=== PATIENT | female | born 1945 | race Caucasian/White ===

== ENCOUNTER 2017-10-03 10:03 | Inpatient (IN) | payer OTHER, BC ==
[~2017-10-03] VITALS: Ht 165.1 cm; Wt 79.0 kg
[2017-10-03 10:08] VITALS: Ht 165.1 cm; Wt 79.0 kg
[2017-10-03 11:03] LABS: CALCIUM 8.9 mg/dL (8.5-10.1); CARBON DIOXIDE 38.1 mmol/L (21-32); CHLORIDE SERUM 95 mmol/L (98-107); CREATININE SERUM 1.2 mg/dL (0.6-1.0); GLUCOSE SERUM 437 mg/dL (74-106); POTASSIUM SERUM 5.2 mmol/L (3.5-5.1); SODIUM SERUM 139 mmol/L (136-145)
[2017-10-03 11:09] LABS: ALBUMIN 3.1 g/dL (3.4-5.0); ALKALINE PHOSPHATASE 88 U/L (46-116); ALT/SGPT 40 U/L (14-59); AST/SGOT 60 U/L (15-37); BILIRUBIN TOTAL 0.6 mg/dL (0.20-1.00); PLATELET COUNT 307 x10^3mcL (130-400); TOTAL PROTEIN, SERUM 6.5 g/dL (6.4-8.2)
[2017-10-03 11:26] LABS: RED CELL DISTRIBUTION WIDTH 20.4 % (11.5-14.5)
[2017-10-03 11:51] LABS: UA SPECIFIC GRAVITY 1.015 (1.005-1.035); microscopic required? YES; urine erythrocyte NEGATIVE (NEGATIVE)
[2017-10-03 12:14] LABS: BAND NEUTROPHIL 15 % (0-10); MONOCYTE 6 % (0-7); SEGMENTED NEUTROPHILS 70 % (37-75)
[2017-10-03 12:15] LABS: METAMYELOCTE 1 % (0-2); PLATELET MORPHOLOGY LARGE PLATELET SEEN; ovalocyte/elliptocyte 1+; rbc morphology (normal/abnorm) ABNORMAL (NORMAL); schistocyte (helmet cell) 1+
[2017-10-03] MEDS ORDERED: MOBIC15 MG PO (15:28)
[2017-10-03] MEDS ORDERED: REQUIP0.5 MG PO (15:29)
[2017-10-03] MEDS ORDERED: FUROSEMIDE40 MG PO (15:29)
[2017-10-03] MEDS ORDERED: COLACE100 MG PO (15:29)
[2017-10-03] MEDS ORDERED: ZOLOFT100 MG PO (15:29)
[2017-10-03] MEDS ORDERED: GABAPENTIN100 M2 PO (15:30)
[2017-10-03] MEDS ORDERED: ALBUTEROL SULFAT3 ML NEB (15:30)
[2017-10-03] MEDS ORDERED: LEVOTHYROXIN0.025 M2 PO (15:30)
[2017-10-03] MEDS ORDERED: BUDESONIDE0.25 MG/2 NEB (15:30)
[2017-10-03] MEDS ORDERED: LORAZEPAM1 MG PO (15:31)
[2017-10-03] MEDS ORDERED: PREDNISONE1 MG (15:31)
[2017-10-03] MEDS ORDERED: METOPROLOL TART25 M1 (15:32)
[2017-10-03 16:14] LABS: MAGNESIUM 2.4 mg/dL (1.8-2.4); PHOSPHOROUS 5.6 mg/dL (2.5-4.9)
[2017-10-03 16:15] LABS: CHOLESTEROL/HDL RATIO 1.8
[2017-10-03 16:24] LABS: FREE T4 0.87 ng/dL (0.76-1.46); FREE THYROXINE INDEX 3.7 ug/dL (1.4-4.5); T3 TOTAL 0.43 ng/mL; T4(THYROXINE) 9.1 ug/dL (4.7-13.3)
[2017-10-03 17:42] VITALS: BP 133/76
[2017-10-03 17:49] VITALS: BP 133/76
[2017-10-03 17:53] VITALS: BP 135/76
[2017-10-03 18:38] LABS: IRON 107 ug/dL (50-170); TOTAL IRON BINDING CAPACITY 319 ug/dL (250-450)
[2017-10-03 19:16] LABS: RED BLOOD CELLS 3.44 M/mm3 (4.10-5.10)
[2017-10-03 20:49] VITALS: BP 125/55
[2017-10-04 05:53] VITALS: BP 130/59
[2017-10-04 09:11] VITALS: BP 115/55
[2017-10-04 12:41] VITALS: BP 121/52
[2017-10-04 17:07] VITALS: BP 130/69
[2017-10-04 17:36] LABS: PLATELET COUNT 177 x10^3mcL (130-400)
[2017-10-04 17:38] LABS: RED CELL DISTRIBUTION WIDTH 20.7 % (11.5-14.5)
[2017-10-04 17:46] LABS: CALCIUM 8.2 mg/dL (8.5-10.1); CARBON DIOXIDE 36.8 mmol/L (21-32); CHLORIDE SERUM 100 mmol/L (98-107); CREATININE SERUM 0.9 mg/dL (0.6-1.0); GLUCOSE SERUM 113 mg/dL (74-106); MAGNESIUM 2.2 mg/dL (1.8-2.4); PHOSPHOROUS 3.6 mg/dL (2.5-4.9); POTASSIUM SERUM 4.9 mmol/L (3.5-5.1); SODIUM SERUM 138 mmol/L (136-145)
[2017-10-04 18:10] LABS: SEGMENTED NEUTROPHILS 68 % (37-75)
[2017-10-04 18:11] LABS: BAND NEUTROPHIL 17 % (0-10); METAMYELOCTE 1 % (0-2); MONOCYTE 5 % (0-7)
[2017-10-04 18:12] LABS: PLATELET MORPHOLOGY PLATELETS NORMAL; ovalocyte/elliptocyte 1+; rbc morphology (normal/abnorm) ABNORMAL (NORMAL)
[2017-10-04 19:30] VITALS: BP 126/54
[2017-10-05 05:33] VITALS: BP 143/79
[2017-10-05 07:49] LABS: PLATELET COUNT 176 x10^3mcL (130-400); RED CELL DISTRIBUTION WIDTH 20.2 % (11.5-14.5)
[2017-10-05 07:54] LABS: CALCIUM 8.6 mg/dL (8.5-10.1); CARBON DIOXIDE 33.2 mmol/L (21-32); CHLORIDE SERUM 100 mmol/L (98-107); CREATININE SERUM 0.8 mg/dL (0.6-1.0); GLUCOSE SERUM 174 mg/dL (74-106); MAGNESIUM 2.2 mg/dL (1.8-2.4); PHOSPHOROUS 4.8 mg/dL (2.5-4.9); SODIUM SERUM 137 mmol/L (136-145)
[2017-10-05 08:48] LABS: POTASSIUM SERUM 5.7 mmol/L (3.5-5.1)
[2017-10-05 10:49] VITALS: BP 148/74
[2017-10-05 10:59] LABS: BAND NEUTROPHIL 6 % (0-10); BASOPHIL 0 % (0-2); MONOCYTE 1 % (0-7); SEGMENTED NEUTROPHILS 92 % (37-75)
[2017-10-05 11:00] LABS: PLATELET MORPHOLOGY PLATELETS DECREASED; rbc morphology (normal/abnorm) ABNORMAL (NORMAL)
[2017-10-05 14:10] VITALS: BP 154/77
[2017-10-05 18:39] VITALS: BP 127/65
[2017-10-05 22:20] VITALS: BP 119/59
[2017-10-06 05:10] VITALS: BP 123/64
[2017-10-06 10:47] VITALS: BP 131/61
[2017-10-06 12:39] LABS: CALCIUM 7.6 mg/dL (8.5-10.1); CARBON DIOXIDE 38.7 mmol/L (21-32); CHLORIDE SERUM 99 mmol/L (98-107); CREATININE SERUM 0.9 mg/dL (0.6-1.0); GLUCOSE SERUM 199 mg/dL (74-106); MAGNESIUM 1.8 mg/dL (1.8-2.4); POTASSIUM SERUM 4.1 mmol/L (3.5-5.1); SODIUM SERUM 140 mmol/L (136-145)
[2017-10-06 13:05] VITALS: BP 144/77
[2017-10-06 13:26] LABS: PLATELET COUNT 221 x10^3mcL (130-400); RED CELL DISTRIBUTION WIDTH 19.7 % (11.5-14.5)
[2017-10-06 14:00] LABS: ATYPICAL LYMPH 1 %; BAND NEUTROPHIL 7 % (0-10); BASOPHIL 0 % (0-2); MONOCYTE 1 % (0-7); SEGMENTED NEUTROPHILS 90 % (37-75)
[2017-10-06 14:01] LABS: PLATELET MORPHOLOGY PLATELETS DECREASED; rbc morphology (normal/abnorm) ABNORMAL (NORMAL)
[2017-10-06 18:11] VITALS: BP 169/69
[2017-10-06 21:53] VITALS: BP 162/76
[2017-10-07 06:05] VITALS: BP 121/70
[2017-10-07 07:54] LABS: PLATELET COUNT 251 x10^3mcL (130-400)
[2017-10-07 07:56] LABS: RED CELL DISTRIBUTION WIDTH 20.5 % (11.5-14.5)
[2017-10-07 07:58] LABS: CALCIUM 8.2 mg/dL (8.5-10.1); CARBON DIOXIDE 37.5 mmol/L (21-32); CHLORIDE SERUM 102 mmol/L (98-107); GLUCOSE SERUM 131 mg/dL (74-106); MAGNESIUM 1.9 mg/dL (1.8-2.4); PHOSPHOROUS 4.2 mg/dL (2.5-4.9); POTASSIUM SERUM 4.2 mmol/L (3.5-5.1); SODIUM SERUM 143 mmol/L (136-145)
[2017-10-07 08:51] LABS: BAND NEUTROPHIL 6 % (0-10); BASOPHIL 0 % (0-2); MONOCYTE 5 % (0-7); PLATELET MORPHOLOGY PLATELETS NORMAL; SEGMENTED NEUTROPHILS 80 % (37-75); rbc morphology (normal/abnorm) ABNORMAL (NORMAL)
[2017-10-07 12:08] VITALS: BP 129/81
[2017-10-07 13:50] VITALS: BP 115/61
[2017-10-07 18:51] VITALS: BP 120/64
[2017-10-07 21:58] VITALS: BP 118/41
[2017-10-08 06:16] VITALS: BP 111/56
[2017-10-08 07:41] LABS: CALCIUM 8.2 mg/dL (8.5-10.1); CARBON DIOXIDE 35.6 mmol/L (21-32); CHLORIDE SERUM 104 mmol/L (98-107); CREATININE SERUM 0.9 mg/dL (0.6-1.0); GLUCOSE SERUM 115 mg/dL (74-106); MAGNESIUM 1.9 mg/dL (1.8-2.4); PHOSPHOROUS 3.5 mg/dL (2.5-4.9); POTASSIUM SERUM 4.4 mmol/L (3.5-5.1); SODIUM SERUM 141 mmol/L (136-145)
[2017-10-08 08:20] LABS: PLATELET COUNT 164 x10^3mcL (130-400)
[2017-10-08 08:22] LABS: RED CELL DISTRIBUTION WIDTH 20.2 % (11.5-14.5)
[2017-10-08 09:00] LABS: BAND NEUTROPHIL 4 % (0-10); METAMYELOCTE 1 % (0-2); MONOCYTE 7 % (0-7); SEGMENTED NEUTROPHILS 77 % (37-75)
[2017-10-08 09:01] LABS: rbc morphology (normal/abnorm) ABNORMAL (NORMAL)
[2017-10-08 10:36] VITALS: BP 117/47
[2017-10-08 14:02] VITALS: BP 114/57
[2017-10-08 17:10] VITALS: BP 96/43
[2017-10-08 21:03] VITALS: BP 119/48
[2017-10-09] VITALS (7 sets, daily range): BP systolic 103–131; BP diastolic 46–70
[2017-10-09 07:51] LABS: PLATELET COUNT 159 x10^3mcL (130-400)
[2017-10-09 07:52] LABS: RED CELL DISTRIBUTION WIDTH 20.6 % (11.5-14.5)
[2017-10-09 08:35] LABS: CALCIUM 8.2 mg/dL (8.5-10.1); CARBON DIOXIDE 39.5 mmol/L (21-32); CHLORIDE SERUM 102 mmol/L (98-107); CREATININE SERUM 0.7 mg/dL (0.6-1.0); GLUCOSE SERUM 105 mg/dL (74-106); MAGNESIUM 1.9 mg/dL (1.8-2.4); PHOSPHOROUS 2.9 mg/dL (2.5-4.9); POTASSIUM SERUM 4.4 mmol/L (3.5-5.1); SODIUM SERUM 142 mmol/L (136-145)
[2017-10-09 10:27] LABS: BAND NEUTROPHIL 5 % (0-10); BASOPHIL 0 % (0-2); METAMYELOCTE 1 % (0-2); MONOCYTE 7 % (0-7); SEGMENTED NEUTROPHILS 78 % (37-75)
[2017-10-09 10:28] LABS: PLATELET MORPHOLOGY PLATELETS NORMAL; ovalocyte/elliptocyte 1+; rbc morphology (normal/abnorm) ABNORMAL (NORMAL)
[2017-10-09] MEDS ORDERED: LOP50 PO (13:25)
[2017-10-09] MEDS ORDERED: CLINDAMYCIN HC300 MG PO (13:29)
[2017-10-09] MEDS ORDERED: LEVAQUIN750 MG PO (13:29)
[2017-10-09] MEDS ORDERED: BD LACTINEX1.4 MG PO (13:31)
[2017-10-09] MEDS ORDERED: SINGULAIR10 MG PO (13:33)
[2017-10-09] MEDS ORDERED: PHARMASSURE VI500 MG PO (14:12)
[2017-10-09] MEDS ORDERED: NATURAL IRON65 MG PO (14:12)
== END 2017-10-09 22:20 | disposition home health service (06) | DRG 871 ==
LOC: ED 10:03 → DU 13:15
PROVIDERS: Emergency Medicine; Family Medicine; Student in an Organized Health Care Education/Training Program
PROC: 05HM33Z Insertion of Infusion Device into Right Internal Jugular Vein, Percutaneous Approach (ICD-10-PCS; principal; 2017-10-04)
PROC: B543ZZA Ultrasonography of Right Jugular Veins, Guidance (ICD-10-PCS; 2017-10-04)
DX: A41.9 Sepsis, unspecified organism (principal); N17.0 Acute kidney failure with tubular necrosis; J96.21 Acute and chronic respiratory failure with hypoxia; J44.1 Chronic obstructive pulmonary disease with (acute) exacerbation; N39.0 Urinary tract infection, site not specified; E44.0 Moderate protein-calorie malnutrition; R65.20 Severe sepsis without septic shock; E87.5 Hyperkalemia; E83.39 Other disorders of phosphorus metabolism; R58 Hemorrhage, not elsewhere classified; G47.33 Obstructive sleep apnea (adult) (pediatric); I10 Essential (primary) hypertension; M81.0 Age-related osteoporosis without current pathological fracture; E11.9 Type 2 diabetes mellitus without complications; D64.9 Anemia, unspecified; E78.5 Hyperlipidemia, unspecified; E03.9 Hypothyroidism, unspecified; Z66 Do not resuscitate; Z51.5 Encounter for palliative care; Z98.1 Arthrodesis status; Z87.891 Personal history of nicotine dependence; Z85.3 Personal history of malignant neoplasm of breast; Z95.0 Presence of cardiac pacemaker; Z68.25 Body mass index [BMI] 25.0-25.9, adult
CPT/HCPCS: 36600; 82962; 83880; 84439; 87804; J0456; J0696; J1642; J1644; J1815; J1956; J2001; J2060; J2405; J2920; J2930; J3475; J3490; J7030; J7040; J7620; J7626; J7644; Q0092; Q0162